=== PATIENT | female | born 1950 | race Caucasian/White ===

== ENCOUNTER 2021-11-02 07:33 | Outpatient (CLI) | payer MEDICARE | END 2021-11-02 07:34 | disposition home or self-care (01) | LOC: CSHULT 07:33 | PROVIDERS: ATTEND Family Medicine | DX: R11.10 Vomiting, unspecified (principal); R19.7 Diarrhea, unspecified; R10.10 Upper abdominal pain, unspecified; R16.0 Hepatomegaly, not elsewhere classified; R18.8 Other ascites; K82.8 Other specified diseases of gallbladder; K76.9 Liver disease, unspecified | CPT/HCPCS: 76700; 76856 ==